=== PATIENT | male | born 1975 | race Asian ===

== ENCOUNTER 2018-07-14 07:21 | Inpatient (IN) | payer OTHER ==
[~2018-07-14] VITALS: Ht 167.6 cm; Wt 95.9 kg
[2018-07-14] VITALS (15 sets, daily range): BP systolic 148–215
--- NOTE | 2018-07-14 07:21 | NUR ---
BROUGHT IN BY [facility], PLACED IN BED #4 AND TRIAGED. REPORT GIVEN TO
--- NOTE | 2018-07-14 07:28 | NUR ---
Patient was discharged from [facility] at 0300 today, went home and called 911 and was BIB ambulance. Patient is awake, alert, and oriented x4. Patient is complaining of sharp abdominal pain 8/10, SOB, dizziness, and weakness for 4 days. Patient reports a history of DM and HTN.
--- NOTE | 2018-07-14 07:30 | NUR ---
ER Dr. Trinidad at bedside examining patient.
[2018-07-14] MEDS ORDERED: DIPHENHYDRAMINE INJ 50 MG/ML VIAL IVP ONE (08:15)
[2018-07-14] MEDS ORDERED: MORPHINE 4 MG/ML INJ. SYRINGE IVP ONE (08:15)
[2018-07-14 08:23] LABS: RED BLOOD CELL COUNT(AUTO) 2.72 MIL/uL (4.2-6.2); WHITE BLOOD COUNT (AUTO) 15.5 K/uL (4.8-10.8)
[2018-07-14 08:24] LABS: HEMOGLOBIN 7.3 g/dL (14.0-18.0); MEAN CORPUSCULAR VOLUME 80 fL (79.0-98.0)
[2018-07-14 08:25] LABS: LYMPHOCYTES % (AUTO) 7.2 % (20.5-51.5); MEAN CORPUSCULAR HEMOGLOBIN 27 pg (27-31); MEAN CORPUSCULAR HGB CONC 34 % (32-36); NEUTROPHILS % (AUTO) 85.7 % (40.0-70.0); PLATELET COUNT (AUTO) 171 K/uL (130-430); RED CELL DISTRIBUTION WIDTH 14.9 % (9.0-15.0)
[2018-07-14 08:26] LABS: BASOPHILS % (AUTO) 0.3 % (0.0-2.0); EOSINOPHILS # (AUTO) 0.1 K/uL (0.0-0.4); EOSINOPHILS % (AUTO) 0.8 % (0.0-4.0); LYMPHOCYTES # (AUTO) 1.1 K/uL (1.0-5.5); MONOCYTES # (AUTO) 0.9 K/uL (0.0-1.0); NEUTROPHILS # (AUTO) 13.3 K/uL (1.8-7.7)
[2018-07-14 08:27] LABS: HEMATOCRIT 21.7 % (36-54)
[2018-07-14 08:47] LABS: POTASSIUM 5.2 mmol/L (3.5-5.1)
[2018-07-14 08:48] LABS: ALBUMIN 2.7 g/dL (3.4-4.8); TOTAL BILIRUBIN 0.5 mg/dL (0.0-1.0)
[2018-07-14 08:51] LABS: CREATININE 29.62 mg/dL (0.55-1.30)
[2018-07-14 08:55] LABS: INR 0.9 (0.80-1.20); PROTHROMBIN TIME 9.2 SECS (9.5-12.5)
[2018-07-14] MEDS ORDERED: DEXTROSE 50% JECT 50 ML DISP.SYRIN IVP ONE (09:15)
[2018-07-14] MEDS ORDERED: SODIUM POLYSTYRENE SULFONATE 15 GM/60 ML UDBTL PO ONE (09:15)
[2018-07-14] MEDS ORDERED: CALCIUM CHLORIDE 1 GM/10ML VIAL (13.6 mEq Ca++/VIAL) IVP ONE (09:15)
[2018-07-14] MEDS ORDERED: INSULIN REGULAR, HUMAN 10 UNITS/0.1 ML INJ IVP ONE (09:15)
[2018-07-14] MEDS ORDERED: SODIUM BICARBONATE 8.4% JECT 50 MEQ/50 ML SYRINGE IVP ONE (09:15)
--- NOTE | 2018-07-14 09:50 | NUR ---
Spoke with Damir regarding Calcium Chloride. States it needs to be entered correctly.
[2018-07-14] MEDS ORDERED: CALCIUM CHLORIDE 1 GM/10 ML DISP.SYRIN (14 mEq Ca++/SYR) ONE (10:33)
[2018-07-14 10:52] LABS: BILIRUBIN,URINE NEGATIVE (NEGATIVE); BLOOD, URINE 1+ (NEGATIVE); CLARITY/URINE CLEAR (CLEAR); COLOR,URINE YELLOW (YELLOW); GLUCOSE,URINE 1+ (NEGATIVE); KETONES,URINE TRACE (NEGATIVE); LEUKOCYTE ESTERASE ,URINE NEGATIVE (NEGATIVE); NITRITE, URINE NEGATIVE (NEGATIVE); PROTEIN URINE 3+ (NEGATIVE); UROBILINOGEN,URINE 0.2 (0.2-1.0)
[2018-07-14 11:06] LABS: BACTERIA,URINE FEW /HPF (None Seen); MUCUS,URINE None Seen /LPF (None Seen); RBC,URINE 0-3 /HPF (0-3); WBC,URINE 0-3 /HPF (0-3)
[2018-07-14] MEDS ORDERED: CARV25TA55 PO (11:09)
[2018-07-14] MEDS ORDERED: FOLI0.8T42 PO (11:09)
[2018-07-14] MEDS ORDERED: NIFE90TA48 PO (11:09)
[2018-07-14] MEDS ORDERED: INSU200I SQ (11:09)
[2018-07-14] MEDS ORDERED: FLUT1BLS3 INH (11:09)
[2018-07-14] MEDS ORDERED: LIP20 PO (11:09)
[2018-07-14] MEDS ORDERED: INSU300I SQ (11:09)
[2018-07-14] MEDS ORDERED: PRO40 PO (11:09)
[2018-07-14] MEDS ORDERED: COLC0.6C3 PO (11:09)
--- NOTE | 2018-07-14 11:13 | NUR ---
Dr. Spicer in to see patient.
--- NOTE | 2018-07-14 11:42 | NUR ---
Patient will be admitted to care of Dr. Spicer. Admitted to ICU unit. Will go to room 5. Belongings list completed. Summary report printed. Report will be given at bedside.
--- NOTE | 2018-07-14 11:43 | NUR ---
Patient transferred to ICU via gurney with mobile monitor, RN and EMT. Report given to DEBRA Pierce at bedside.
--- NOTE | 2018-07-14 11:45 | NUR ---
OPENING NOTE: Patient arrived from ER, bedside SBAR report and plan of care received from RUG CLIPPER.
--- NOTE | 2018-07-14 11:50 | NUR ---
CONSULT: DR. ADRIANA [facility] CALLED FOR CONSULT, SPOKE TO DERICK
--- NOTE | 2018-07-14 12:03 | NUR ---
CALLED PAGED DR TERESA SPOKE WITH ROBERT
--- NOTE | 2018-07-14 12:15 | NUR ---
DR. WRIGHT HERE TO SEE PATIENT, SPOKE TO PATIENT AND FAMILY RE: PLAN OF CARE.
--- NOTE | 2018-07-14 12:25 | NUR ---
CONSULT: DR. MARLENA MENDIOLA CALLED FOR CONSULT, RE: DIALYSIS ACCESS PLACEMENT SPOKE TO ADE
--- NOTE | 2018-07-14 12:25 | NUR ---
CONSULTATIONS CALLED PAGED DR WATSON AND SPOKE WITH LUIS PAGED DR ORDOÑEZ AND SPOKE WITH LUIS REASONS FOR BOTH CONSULTS WERE LIVER MASS REQUESTING DR: DR TERESA
--- NOTE | 2018-07-14 12:30 | NUR ---
DR. MENDIOLA CALLED BACK, MADE AWARE OF CONSULT, WILL COME IN AND SEE PT THIS PM.
--- NOTE | 2018-07-14 12:51 | NUR ---
DR TERESA returned call, notified of elevated blood pressure, lack of DVT prophylaxis, orders received.
[2018-07-14] MEDS ORDERED: hydrALAZINE HCL 20 MG/ML VIAL ONE (13:15)
--- NOTE | 2018-07-14 13:29 | NUR ---
CONSULTATION CALLED FOR DR CHANG SPOKE WITH RIKA
--- NOTE | 2018-07-14 13:34 | NUR ---
MD EDILIA TERESA SPOKE WITH RIKA
--- NOTE | 2018-07-14 13:44 | NUR ---
CALLED PAGED DR WRIGHT SPOKE WITH JUANITO
[2018-07-14] MEDS ORDERED: LABETALOL 100 MG/ 20ML VIAL ONE (13:55)
[2018-07-14] MEDS: hydrALAZINE HCL 20 MG/ML VIAL IVP PRN (13:56)
[2018-07-14] MEDS: LABETALOL 100 MG/ 20ML VIAL IVP PRN (13:57)
--- NOTE | 2018-07-14 15:25 | NUR ---
BT INITIATION: Consent signed per patient, witness and MD agreeing to administration of blood. Blood has been type and crossmatched. Blood sent from blood bank. Information on unit of blood checked against patient wristband at bedside by two nurses. All information matches. Patient or responsible libertarian informed of potential complications associated with blood transfusion. Informed of possible transfusion reaction symptoms. Aware of need to notify nurse at once of itching, shortness of breath, flushing, feeling of impending doom, or other symptoms not previously present. Vital signs taken within 5 minutes prior to initiation of transfusion. RN will remain with patient for first 15 minutes of transfusion at which time vital signs will be re-assessed.
--- NOTE | 2018-07-14 15:45 | NUR ---
External Male Urinary Catheter Applied External Male Urinary Catheter and PT tolerated procedure without complication. Placed urine collection back below bladder. Addendum: 07/14/18 at 1605 by Roel Gabriel RN Previous note entered in wrong file.
--- NOTE | 2018-07-14 15:46 | NUR ---
Disregard note for 1545.
[2018-07-14] MEDS: niCARdipine 25 MG in D5W 240 ML IV PRN ×4 (15:51→22:40)
--- NOTE | 2018-07-14 17:00 | NUR ---
DR TERESA called back, notified him of sepsis risk flag, new orders received
--- NOTE | 2018-07-14 17:20 | NUR ---
SELF KYLE: Patient educated on the importance of turning frequently too off load pressure sensitive areas, I told patient if needed we could help to turn him Q 2 hrs but he refused saying he was capable, will continue to monitor self turning.
[2018-07-14] MEDS ORDERED: PIPERACILLIN/TAZOBACTAM 2.25 GM/ DEX-IS 50 ML PREMIX IV ONE (17:30)
[2018-07-14] MEDS ORDERED: PIPERACILLIN IV PRN (18:00)
[2018-07-14] MEDS ORDERED: D5W IV PRN (18:00)
[2018-07-14] MEDS ORDERED: TAZOBACTAM IV PRN (18:00)
--- NOTE | 2018-07-14 19:10 | NUR ---
PM SHIFT ASSESSMENT Pt is alert and oriented. Pt on RA, RR even and unlabored. ST noted on monitor. IV to RFA and RW, no signs of infiltration noted. Skin warm and intact. Safety precautions in place, call light within reach. Will continue to monitor.
--- NOTE | 2018-07-14 19:32 | NUR ---
ENDORSEMENT: Gave SBAR report and endorsed plan of care to night RN
[2018-07-14] MEDS: PANTOPRAZOLE SODIUM 40 MG/VIAL (PROTONIX) IVP SCH (20:17)
[2018-07-14] MEDS ORDERED: niCARdipine 2.5 MG/ML, 10 ML VIAL (CARDENE) IV ONE ×2 (20:36→22:39)
[2018-07-14 20:49] LABS: TOTAL IRON BIND. CAPACITY 145 ug/dL (250-450)
[2018-07-14 20:54] LABS: INR 0.9 (0.80-1.20); PROTHROMBIN TIME 9.7 SECS (9.5-12.5)
[2018-07-14] MEDS ORDERED: COMMUNICATION ORDER XX ONE (21:00)
--- NOTE | 2018-07-14 21:00 | NUR ---
Dr. Martines here to insert Dialysis Catheter.
[2018-07-14] MEDS ORDERED: HEPARIN SODIUM,PORCINE 5000 UNITS/ML VIAL ONE (21:06)
--- NOTE | 2018-07-14 22:58 | NUR ---
Dialysis nurse here at bedside for first time dialysis.
[2018-07-14] MEDS ORDERED: HEPARIN SODIUM, PORCINE 10,000 UNITS/ 10 ML VIAL MC ONE (23:30)
[2018-07-15] VITALS (24 sets, daily range): BP systolic 113–161
[2018-07-15] MEDS ORDERED: niCARdipine 2.5 MG/ML, 10 ML VIAL (CARDENE) IV ONE ×2 (00:12→04:24)
[2018-07-15] MEDS: niCARdipine 25 MG in D5W 240 ML IV PRN ×9 (01:17→23:31)
[2018-07-15] MEDS: PIPERACILLIN/TAZOBACTAM 2.25 GM/ D5W 50 ML IV SCH ×4 (06:25→17:36)
--- NOTE | 2018-07-15 07:30 | NUR ---
ENDORSEMENT Pt care endorsed to jomar RICHARDSON.
--- NOTE | 2018-07-15 07:35 | NUR ---
Opening Note Patient received awake and alert. Patient on room air at this time with no complaints of any shortness of breath and have no signs of acute distress. Patient has a 20 gauge peripheral IV on the wrist patent, flushing well, and saline locked and a right 20 gauge forearm IV infusing nicardipine @ 8.5 mg/hr. Patient skin is intact. No complaints of pain. Safety precautions in place.
[2018-07-15] MEDS: PANTOPRAZOLE SODIUM 40 MG/VIAL (PROTONIX) IVP SCH ×2 (08:33→21:12)
--- NOTE | 2018-07-15 08:50 | NUR ---
MD Rounds Dr. Spicer @ bedside. New orders received and will implement.
[2018-07-15] MEDS ORDERED: DEXTROSE 50% JECT 50 ML DISP.SYRIN IVP PRN (09:00)
[2018-07-15 09:33] LABS: HEMATOCRIT 24.4 % (36-54); HEMOGLOBIN 8.4 g/dL (14.0-18.0); MEAN CORPUSCULAR HEMOGLOBIN 27 pg (27-31); MEAN CORPUSCULAR HGB CONC 35 % (32-36); MEAN CORPUSCULAR VOLUME 80 fL (79.0-98.0); PLATELET COUNT (AUTO) 154 K/uL (130-430); RED BLOOD CELL COUNT(AUTO) 3.07 MIL/uL (4.2-6.2); WHITE BLOOD COUNT (AUTO) 13.4 K/uL (4.8-10.8)
[2018-07-15 09:34] LABS: BASOPHILS # (AUTO) 0.1 K/uL (0.0-0.2); BASOPHILS % (AUTO) 0.5 % (0.0-2.0); EOSINOPHILS # (AUTO) 0.2 K/uL (0.0-0.4); EOSINOPHILS % (AUTO) 1.1 % (0.0-4.0); LYMPHOCYTES # (AUTO) 1.2 K/uL (1.0-5.5); LYMPHOCYTES % (AUTO) 9.2 % (20.5-51.5); MONOCYTES # (AUTO) 1.4 K/uL (0.0-1.0); MONOCYTES % (AUTO) 10.3 % (1.7-9.3); NEUTROPHILS # (AUTO) 10.6 K/uL (1.8-7.7)
--- NOTE | 2018-07-15 09:41 | NUR ---
Nutrition Update Vadim Scale 17 noted. Pt admitted for renal failure, hyperkalemia. Diet: clear liquid BMI: 32.3 kg/m2 RD to follow per nutrition care standards.
[2018-07-15 09:42] LABS: CALCIUM 7.5 mg/dL (8.4-11.0); POTASSIUM 3.3 mmol/L (3.5-5.1)
[2018-07-15 09:46] LABS: ALBUMIN 2.3 g/dL (3.4-4.8); TOTAL BILIRUBIN 0.8 mg/dL (0.0-1.0)
[2018-07-15 09:57] LABS: CREATININE 22.63 mg/dL (0.55-1.30); NEUTROPHILS % (AUTO) 78.9 % (40.0-70.0)
--- NOTE | 2018-07-15 10:12 | NUR ---
Rounds Dr. Chavis @ bedside.
[2018-07-15] MEDS ORDERED: MIDAZOLAM HCL 5 MG/5 ML VIAL ONE (11:21)
[2018-07-15] MEDS ORDERED: SIMETHICONE 40 MG/0.6 ML ML ONE (11:21)
--- NOTE | 2018-07-15 12:00 | NUR ---
RN Rounds Patient awake and alert. No signs of acute distress noted. Patient has no complaints of pain. Safety precautions in place.
--- NOTE | 2018-07-15 12:00 | NUR ---
Hemodialysis molded goods spot picker @ bedside. Completed procedure @ 1340 with 1L output. Patient received 2 units of PRBCs. Patient tolerated procedure well. No signs of distress noted.
[2018-07-15] MEDS: INSULIN REGULAR, HUMAN 100 UNITS/ML, 10 ML VIAL (novoLIN R) SUBCUT PRN ×3 (12:33→23:36)
--- NOTE | 2018-07-15 14:49 | NUR ---
SS NOTE: CLAY PRESS OPERATOR met with pt and spouse, Candis at bedside for "assessment". Pt is a 42 year old male who came in via ambulance through the emergency room for abdominal pain x4days. Pt states prior to coming to [facility], he was at [facility] ER but was discharged. Three hours after, the patient was still experiencing abdominal pain prompting spouse to call 911. Pt lives in an apartment with spouse and three children (ages 18, 10 and 9). Pt states he used to work for [employer] in [facility] [place] but is on disability since January 2018. Pt states he was admitted at [facility] in January for seizures due to uncontrolled blood sugar. Pt states he is aware he has DM-II but "didn't really take care of myself". Pt states after his January admission, he has been monitoring his blood sugar and tried to lose weight. Pt states he finds support and strength from his family. Pt denies any depression in the past or currently, but states history of anxiety in the past. Pt denies seeing a therapist and denies having history of substance use/abuse. Pt states his children are understanding his condition and aware that he is in the hospital. Pt and states the RN's and MD's are informing them of his prognosis and understands his current condition, although they showed concern if dialysis is going to be permanent. CLAY PRESS OPERATOR informed pt that they need to talk to attending MD regarding that; pt and agreed. Pt denies having an advanced directive/POLST; CLAY PRESS OPERATOR explained process and forms provided. CLAY PRESS OPERATOR provided pt and family with SS phone number and encouraged to call SS if any questions arise. SS will remain available and follow up as needed.
[2018-07-15] MEDS: MIDAZOLAM HCL 5 MG/5 ML VIAL ONE ×3 (15:37→15:42)
[2018-07-15] MEDS: fentaNYL CITRATE/PF 100 MCG/2 ML AMP ONE ×3 (15:37→15:42)
--- NOTE | 2018-07-15 15:40 | NUR ---
EGD Dr. Lopez @ bedside for EGD procedure assisted by GI RNs. Patient tolerated procedure well. No signs of acute distress noted.
--- NOTE | 2018-07-15 15:58 | NUR ---
Wound Evaluation: Wound Consult ordered for Low Vadim Score. Patient evaluated for a low Vadim score of 17. Patient was awake, alert, oriented and received in a Anika Bed with an IsoFlex FERN mattress. Patient is able to turn in bed independently. Skin is intact. Recommend encourage and assist patient as needed with repositioning every 2 hours with pillow support. Elevate, off-load and float bilateral heels with pillows. Offload pressure areas with pillows for pressure re-distribution. Perform skin care and monitor skin integrity Q shift. Skin assessment: 1. Right anterior cardenas: Large area of scaly skin with pink hue and bumpy texture, present on admission. No odor, no drainage. Pruritic. Site measures 25.0 cm x 16.0 cm. Per patient, it is hyper-calcified tissue. Recommend: Cleanse site with mild soap and water. Pat dry. Apply Eucerin cream to involved area. Perform site care twice a day, and as needed for soiling.
--- NOTE | 2018-07-15 16:00 | NUR ---
RN Rounds Patient awake and alert. No signs of acute distress noted. Patient has no complaints of pain. Safety precautions in place. Call light in reach.
--- NOTE | 2018-07-15 16:05 | NUR ---
CHG CHG bath given and linen changed. Patient tolerated procedure well.
[2018-07-15] MEDS ORDERED: MINERAL OIL/PETROLATUM,WHITE 113 GM CREAM.GM. TP ONE (16:30)
--- NOTE | 2018-07-15 17:05 | NUR ---
Closing Note Patient endorsed to shift stacker RN. Patient did not complain of pain @ this time. Patient in no signs of distress. Safety precautions in place.
--- NOTE | 2018-07-15 19:25 | NUR ---
PM SHIFT ASSESSMENT Pt is alert and oriented. Pt on RA, RR even and unlabored. ST noted on monitor. IV to RFA and RW, no signs of infiltration noted. R IJ Dialysis catheter in place, dressing C/D/I. Skin warm and intact. Safety precautions in place, call light within reach. Will continue to monitor.
[2018-07-15] MEDS: MINERAL OIL/PETROLATUM,WHITE 113 GM CREAM.GM. TP SCH (21:13)
[2018-07-15] MEDS: LABETALOL 100 MG/ 20ML VIAL IVP PRN (23:37)
[2018-07-16] VITALS (24 sets, daily range): BP systolic 110–174
[2018-07-16] MEDS: niCARdipine 25 MG in D5W 240 ML IV PRN ×2 (02:09→06:14)
[2018-07-16] MEDS: PIPERACILLIN/TAZOBACTAM 2.25 GM/ D5W 50 ML IV SCH ×4 (06:05→17:29)
[2018-07-16] MEDS: LABETALOL 100 MG/ 20ML VIAL IVP PRN ×2 (06:05→22:16)
[2018-07-16 06:10] LABS: HEPATITIS A AB, IgM Negative (Negative); HEPATITIS B CORE AB, IgM Negative (Negative); HEPATITIS B SURFACE AG Negative (Negative)
--- NOTE | 2018-07-16 07:15 | NUR ---
Opening Note Received bedside report from Jacqui RICHARDSON for continuation of care. Received patient awake in bed. No signs or symptoms of distress noted. Bed locked in lowest position, bed alarm on, and call light within reach.
--- NOTE | 2018-07-16 07:27 | NUR ---
ENDORSEMENT Pt care endorsed to jomar RICHARDSON.
[2018-07-16 08:07] LABS: AFP, TUMOR MARKER 1.5 ng/mL (0.0-8.3)
[2018-07-16] MEDS: PANTOPRAZOLE SODIUM 40 MG/VIAL (PROTONIX) IVP SCH ×2 (08:20→21:13)
[2018-07-16] MEDS: MINERAL OIL/PETROLATUM,WHITE 113 GM CREAM.GM. TP SCH ×2 (08:21→21:12)
[2018-07-16 09:23] LABS: HEMATOCRIT 26.9 % (36-54); HEMOGLOBIN 9.3 g/dL (14.0-18.0); MEAN CORPUSCULAR HEMOGLOBIN 28 pg (27-31); MEAN CORPUSCULAR HGB CONC 34 % (32-36); MEAN CORPUSCULAR VOLUME 81 fL (79.0-98.0); RED BLOOD CELL COUNT(AUTO) 3.35 MIL/uL (4.2-6.2); WHITE BLOOD COUNT (AUTO) 13.5 K/uL (4.8-10.8)
[2018-07-16 09:24] LABS: BASOPHILS # (AUTO) 0.1 K/uL (0.0-0.2); BASOPHILS % (AUTO) 0.5 % (0.0-2.0); EOSINOPHILS # (AUTO) 0.3 K/uL (0.0-0.4); EOSINOPHILS % (AUTO) 2.5 % (0.0-4.0); LYMPHOCYTES # (AUTO) 1.5 K/uL (1.0-5.5); LYMPHOCYTES % (AUTO) 11.4 % (20.5-51.5); MONOCYTES # (AUTO) 1.5 K/uL (0.0-1.0); MONOCYTES % (AUTO) 11.1 % (1.7-9.3); NEUTROPHILS # (AUTO) 10.1 K/uL (1.8-7.7); PLATELET COUNT (AUTO) 144 K/uL (130-430); RED CELL DISTRIBUTION WIDTH 15.3 % (9.0-15.0)
[2018-07-16 09:28] LABS: ALBUMIN 2.3 g/dL (3.4-4.8); CALCIUM 7.1 mg/dL (8.4-11.0); POTASSIUM 3.1 mmol/L (3.5-5.1); TOTAL BILIRUBIN 0.7 mg/dL (0.0-1.0)
[2018-07-16 09:38] LABS: CREATININE 18.79 mg/dL (0.55-1.30)
[2018-07-16 10:11] LABS: NEUTROPHILS % (AUTO) 74.5 % (40.0-70.0)
[2018-07-16] MEDS ORDERED: hydrALAZINE HCL 25 MG TABLET PO ONE (10:30)
[2018-07-16] MEDS ORDERED: CARVEDILOL 6.25 MG TABLET (COREG) PO ONE (10:30)
[2018-07-16] MEDS: INSULIN REGULAR, HUMAN 100 UNITS/ML, 10 ML VIAL (novoLIN R) SUBCUT PRN (11:17)
[2018-07-16 12:06] LABS: FOLATE (FOLIC ACID) >20.0 ng/mL (>3.0)
--- NOTE | 2018-07-16 12:33 | NUR ---
CHG bath performed by patient. Linens changed. Patient tolerated well.
[2018-07-16] MEDS ORDERED: POTASSIUM CHLORIDE 20 MEQ TAB.PRT.SR PO ONE (13:00)
--- NOTE | 2018-07-16 13:00 | NUR ---
Dr. Chavis at bedside examining patient. New orders received.
[2018-07-16 14:27] LABS: FERRITIN 1284 ng/mL (30-400)
[2018-07-16] MEDS: hydrALAZINE HCL 25 MG TABLET PO SCH ×2 (14:34→21:09)
--- NOTE | 2018-07-16 16:01 | NUR ---
Call out to Dr. Giovanny Mercedes regarding blood pressure. 89/38 NS bolus being given. Pt keeps bending her arm and IV site is left AC. Family at bedside. Addendum: 07/16/18 at 1603 by Yoon Mcdermott RN Above entry made on the wrong pt.
--- NOTE | 2018-07-16 17:08 | NUR ---
RN Rounds Patient resting in bed, arousable to voice and touch. Patient denies any pain. No signs or symptoms of distress noted.
[2018-07-16] MEDS: hydrALAZINE HCL 20 MG/ML VIAL IVP PRN ×2 (17:32→22:15)
--- NOTE | 2018-07-16 19:15 | NUR ---
Endorsement Endorsed bedside report to overnight stocker RN using SBAR approach for continuation of care.
--- NOTE | 2018-07-16 20:00 | NUR ---
AAOX4. IN NO APPARENT DISTRESS. VSS. DENIES PAIN. BREATH SOUNDS ESSENTIALLY CLEAR. ON ROOM AIR. POX 95%. BOWEL SOUNDS (+). PULSES PALPABLE. SKIN W/D. COLOR SATISFACTORY. HOB UP TO COMFORT. SIDE RAILS UP. SIDE RAILS PADDED. CALL LIGHTS WITHIN REACH. AMBULATED TO TOILET EARLIER, DEFECATED AND MICTURATED STOOL AND URINE. SELF JANIE-CARE DONE. BACK TO BED WITHOUT INCIDENCE. SINUS TACH. RIGHT IJ DIALYSIS CATH DRSG D/I.
--- NOTE | 2018-07-16 20:40 | NUR ---
DR WATSON HERE, TALKED TO PT. NO NEW ORDERS GIVEN.
[2018-07-16] MEDS ORDERED: CARVEDILOL 6.25 MG TABLET (COREG) PO SCH (21:00)
--- NOTE | 2018-07-16 22:00 | NUR ---
RESTING IN BED, SEMI FOWLERS POSITION. TRANDATE 20 MG AND APRESOLINE 10 MG IVP PRN GIVEN BECAUSE OF BP 174/97.
[2018-07-17] VITALS (20 sets, daily range): BP systolic 146–185
--- NOTE | 2018-07-17 | NUR ---
AWAKE. ACCU-CHEK 112, NO INSULIN DUE PER SLIDING SCALE COV. DENIES NATHANIEL, SOB, DISTRESS. EDUCATED ON DIABETES.
[2018-07-17] MEDS: INSULIN REGULAR, HUMAN 100 UNITS/ML, 10 ML VIAL (novoLIN R) SUBCUT PRN ×2 (01:19→06:25)
--- NOTE | 2018-07-17 02:00 | NUR ---
DOZES ON AND OFF. OOB TO BSC, DEFECATED DARK BROWN WATERY STOOL MIXED WITH URINE. SELF JANIE-CARE. BACK TO BED WITHOUT INCIDENCE. DAISY WELL.
--- NOTE | 2018-07-17 04:00 | NUR ---
SLEPT INTERMITTENTLY. VSS. TURNS SELF WELL.
[2018-07-17 05:22] LABS: HAPTOGLOBIN 141 mg/dL (34-200)
--- NOTE | 2018-07-17 06:00 | NUR ---
SLEPT FOR LONG PERIODS OF TIME. TURNS SELF WELL. 0 DISTRESS. PLEASANT. CONVERSANT. ACCU-CHEK 92, NO INSULIN DUE PER SLIDING SCALE COV. NO COMPLAINTS OFFERED AT THIS TIME. REMAINS IN GUARDED CONDITION.
[2018-07-17] MEDS: PIPERACILLIN/TAZOBACTAM 2.25 GM/ D5W 50 ML IV SCH ×4 (06:25→17:10)
[2018-07-17 07:09] LABS: ALBUMIN 1.9 g/dL (3.4-4.8); POTASSIUM 3.4 mmol/L (3.5-5.1); TOTAL BILIRUBIN 0.5 mg/dL (0.0-1.0)
--- NOTE | 2018-07-17 07:10 | NUR ---
A/OX4, AMBULATORY. SR-ST ON MONITOR. IV SITES ON RIGHT HAND, ARM, #20, SL. LANEY CATH ON UPPER RIGHT CHEST, DRESSING CDI. CALL LIGHT IN PLACE, BED LOCKED AT THE LOWEST POSITION, WILL CONTINUE TO MONITOR.
[2018-07-17 07:16] LABS: CALCIUM 6.5 mg/dL (8.4-11.0); CREATININE 19.14 mg/dL (0.55-1.30)
[2018-07-17 07:25] LABS: BASOPHILS % (AUTO) 0.7 % (0.0-2.0); EOSINOPHILS % (AUTO) 2.9 % (0.0-4.0); HEMATOCRIT 26.8 % (36-54); HEMOGLOBIN 9.2 g/dL (14.0-18.0); LYMPHOCYTES % (AUTO) 8.9 % (20.5-51.5); MEAN CORPUSCULAR HEMOGLOBIN 28 pg (27-31); MEAN CORPUSCULAR HGB CONC 34 % (32-36); MEAN CORPUSCULAR VOLUME 81 fL (79.0-98.0); MONOCYTES % (AUTO) 10.8 % (1.7-9.3); NEUTROPHILS # (AUTO) 11.7 K/uL (1.8-7.7); NEUTROPHILS % (AUTO) 76.7 % (40.0-70.0); PLATELET COUNT (AUTO) 141 K/uL (130-430); RED BLOOD CELL COUNT(AUTO) 3.32 MIL/uL (4.2-6.2); RED CELL DISTRIBUTION WIDTH 15.7 % (9.0-15.0); WHITE BLOOD COUNT (AUTO) 14.9 K/uL (4.8-10.8)
[2018-07-17 07:26] LABS: BASOPHILS # (AUTO) 0.1 K/uL (0.0-0.2); EOSINOPHILS # (AUTO) 0.4 K/uL (0.0-0.4); LYMPHOCYTES # (AUTO) 1.3 K/uL (1.0-5.5); MONOCYTES # (AUTO) 1.6 K/uL (0.0-1.0)
[2018-07-17] MEDS ORDERED: CARVEDILOL 6.25 MG TABLET (COREG) PO SCH (09:00)
--- NOTE | 2018-07-17 09:00 | NUR ---
HD BEGINS. WILL CONTINUE TO MONITOR.
[2018-07-17] MEDS: CARVEDILOL 25 MG TABLET (COREG) PO SCH ×2 (09:09→21:15)
[2018-07-17] MEDS: PANTOPRAZOLE SODIUM 40 MG/VIAL (PROTONIX) IVP SCH ×2 (09:09→21:16)
[2018-07-17] MEDS: MINERAL OIL/PETROLATUM,WHITE 113 GM CREAM.GM. TP SCH ×2 (09:10→21:00)
--- NOTE | 2018-07-17 10:00 | NUR ---
patient has a dark brown loose bm.
[2018-07-17] MEDS ORDERED: HEPARIN SODIUM,PORCINE 5000 UNITS/ML VIAL SUBCUT ONE ×2 (10:30)
[2018-07-17] MEDS ORDERED: COMMUNICATION ORDER XX ONE (10:30)
[2018-07-17] MEDS: hydrALAZINE HCL 25 MG TABLET PO SCH ×3 (11:58→21:14)
--- NOTE | 2018-07-17 12:00 | NUR ---
HD IS COMPLETED. 500ML IS REMOVED.
[2018-07-17] MEDS: LABETALOL 100 MG/ 20ML VIAL IVP PRN ×2 (13:31→18:02)
[2018-07-17] MEDS: hydrALAZINE HCL 20 MG/ML VIAL IVP PRN (14:07)
[2018-07-17] MEDS ORDERED: amLODIPine BESYLATE 10 MG TABLET PO ONE (14:15)
--- NOTE | 2018-07-17 14:42 | NUR ---
DR. KYLE IS CALLED ABOUT THE ELEVATED BP AT 160S-170S SBP. DR. KYLE IS CALLED, AND ORDER IS GIVEN.
--- NOTE | 2018-07-17 15:53 | NUR ---
Page out to Dr. Singh for orders. Spoke with kitty. Addendum: 07/17/18 at 1607 by Jane Ford RN Dr. Singh return call, no orders made.
--- NOTE | 2018-07-17 16:07 | NUR ---
Page out to Dr. Quijano for orders for pt's BP, currently 182/104.
--- NOTE | 2018-07-17 18:00 | NUR ---
Dr. Quijano calls back, and informs him that patient's BP remains elevated. New order is given. Will be carried out.
--- NOTE | 2018-07-17 18:39 | NUR ---
Patient is transferred to Tele. Care is delegated to DEBRA Coy.
--- NOTE | 2018-07-17 18:45 | NUR ---
RECEIVED PATIENT FROM ICU Patient received from ICU. Patient is awake, alert, and oriented x4. Denies any pain/discomfort. Breathing even and unlabored. IV sites remains patent and intact, saline locked. Sukhdev cath in place on right intrajugular, covered with transparent dressing, dressing dry, clean and intact. Oriented patient on room, call light use, and routine. Safety, seizure, and fall precautions observed, bed low and locked, side rails up x2, seizure pads present, call light within reach. Will endorse plan of care. Family at the bedside.
--- NOTE | 2018-07-17 20:00 | NUR ---
INITIAL NOTES: BEDSIDE REPORT WAS DONE. PATIENT IN BED AWAKE ,ALERT ,ORIENTED X3, WATCHING TV SHOWS, DENIES PAIN NOR SOB. BOTH SALINE LOCKS TO RFA SITES CLEAR.BIOPACTH DRESSING TO RT. EXTERNAL JUGULAR WITH OLD BLOOD.CALL LIGHT WITHIN REACH. BED IN LOW POSITION..SINUS TACHYCARDEIC. SEE ASSESSMENT FOR MORE DETAILS. Addendum: 07/19/18 at 0308 by Suzanne Roberts RN DATE OF THIS NOTES IS 07/18/18 AT 2000 HR.
--- NOTE | 2018-07-17 20:05 | NUR ---
INITIAL NOTES: BEDSIDE REPORT DONE FROM AM RN. PATIENT IN BED AWAKE ,ALERT ,ORIENTED X3/ MAURICIO FAMILIES AT BEDSIDE. DENIES PAIN NOR SOB.SALINE LOCK X2 NO REDNESS NOR SWOLLEN. RT. EXTERNAL JUGULAR DRESSING DRY AND INTACT. TRACE EDEMA TO LEGS ,1+SACRAL EDEMA. RT. LEG HOWARD WITH ECZEMA,DENIES ITCHING. CALL LIGHT WITHIN REACH.BED IN LOW POSITION. SINUS TACHYCARDIA. ELEVATED BLOOD PRESSURE ON MEDS.PLAN OF CARE DISCUSSED.WILL MONITOR CLOSELY.
--- NOTE | 2018-07-17 21:10 | NUR ---
MEDS ADMIN: ALL DUE PO/IV MEDS GIVEN WITHOUT DIFFICULTY.
[2018-07-17] MEDS: LOSARTAN POTASSIUM 50 MG TABLET (COZAAR) PO SCH (21:15)
--- NOTE | 2018-07-17 23:05 | NUR ---
ROUNDS: RESTING QUITELY WITH EYES CLOSE. NO DISTRESS.
[2018-07-18] MEDS: INSULIN REGULAR, HUMAN 100 UNITS/ML, 10 ML VIAL (novoLIN R) SUBCUT PRN (00:35)
--- NOTE | 2018-07-18 01:05 | NUR ---
ROUNDS: SELF TURN. RESTING QUITELY. AROUSABLE,DENIES ANY PAIN.
[2018-07-18 02:37] VITALS: BP_SYST 152
--- NOTE | 2018-07-18 04:30 | NUR ---
ROUNDS: PATIENT SLEEPING. NSR ON MONITOR.
[2018-07-18] MEDS: PIPERACILLIN/TAZOBACTAM 2.25 GM/ D5W 50 ML IV SCH ×4 (06:36→17:37)
--- NOTE | 2018-07-18 06:56 | NUR ---
CLOSING: ALL NEEDS WERE ATTENDED. SLEPT AT SHORT INTERVALS. VOIDED ONCE THIS AM WITH MODERATE AMOUNT. INSTRUCTED TO USE URINAL FOR ACCURATE INTAKE AND OUTPUT. RECEPTIVE.NO ACUTE CARDIOPULMONARY DISTRESS . ALL IV LINES INTACT. SINUS RHYTHM. WILL ENDORSE CARE TO AM RN.
[2018-07-18 07:15] LABS: ALBUMIN 1.6 g/dL (3.4-4.8); POTASSIUM 3.2 mmol/L (3.5-5.1); TOTAL BILIRUBIN 0.5 mg/dL (0.0-1.0)
[2018-07-18 07:34] LABS: HEMOGLOBIN 8.6 g/dL (14.0-18.0); RED BLOOD CELL COUNT(AUTO) 3.12 MIL/uL (4.2-6.2); WHITE BLOOD COUNT (AUTO) 12.9 K/uL (4.8-10.8)
[2018-07-18 07:35] LABS: HEMATOCRIT 25.7 % (36-54); MEAN CORPUSCULAR HEMOGLOBIN 28 pg (27-31); MEAN CORPUSCULAR HGB CONC 34 % (32-36); MEAN CORPUSCULAR VOLUME 82 fL (79.0-98.0); PLATELET COUNT (AUTO) 138 K/uL (130-430); RED CELL DISTRIBUTION WIDTH 15.6 % (9.0-15.0)
--- NOTE | 2018-07-18 07:45 | NUR ---
AM ASSESSMENT Pt received from night RN using SBAR. Vital signs stable, no signs of injury or complaints of distress.
[2018-07-18 07:47] LABS: CALCIUM 6.6 mg/dL (8.4-11.0); CREATININE 13.55 mg/dL (0.55-1.30)
[2018-07-18 08:00] VITALS: BP_SYST 164
[2018-07-18] MEDS: PANTOPRAZOLE SODIUM 40 MG/VIAL (PROTONIX) IVP SCH ×2 (08:44→21:05)
[2018-07-18] MEDS: amLODIPine BESYLATE 10 MG TABLET PO SCH (08:45)
[2018-07-18] MEDS: CARVEDILOL 25 MG TABLET (COREG) PO SCH ×2 (08:45→21:04)
[2018-07-18] MEDS: hydrALAZINE HCL 25 MG TABLET PO SCH ×2 (08:45→21:03)
[2018-07-18] MEDS: LOSARTAN POTASSIUM 50 MG TABLET (COZAAR) PO SCH (08:46)
[2018-07-18] MEDS: MINERAL OIL/PETROLATUM,WHITE 113 GM CREAM.GM. TP SCH ×2 (08:56→21:06)
--- NOTE | 2018-07-18 09:43 | NUR ---
Paged Dr. Quijano waiting on pending labs, paged regarding critical labs.
[2018-07-18 09:47] LABS: BASOPHILS % (AUTO) 0.4 % (0.0-2.0); EOSINOPHILS # (AUTO) 0.3 K/uL (0.0-0.4); EOSINOPHILS % (AUTO) 2.2 % (0.0-4.0); LYMPHOCYTES % (AUTO) 7.5 % (20.5-51.5); MONOCYTES # (AUTO) 1.7 K/uL (0.0-1.0); NEUTROPHILS # (AUTO) 9.9 K/uL (1.8-7.7)
[2018-07-18 09:48] LABS: NEUTROPHILS % (AUTO) 76.9 % (40.0-70.0)
--- NOTE | 2018-07-18 10:35 | NUR ---
MD Dr. Quijano called back, informed of critical lab values Ca+ 6.6 and Crea 13.55, new orders received.
[2018-07-18] MEDS ORDERED: POTASSIUM CHLORIDE 20 MEQ TAB.PRT.SR PO ONE (11:30)
[2018-07-18 11:45] VITALS: BP_SYST 163
[2018-07-18 16:23] VITALS: BP_SYST 146
--- NOTE | 2018-07-18 16:31 | NUR ---
PATIENT RESTING: Patient resting quietly. No acute distress noted. Vital signs within normal range.
--- NOTE | 2018-07-18 17:46 | NUR ---
RN rounds/Medication patient resting in bed, blood glucose checked, no insulin coverage per MD orders, IV antibiotic hung and infusing well, family at bedside, continuing to monitor, bed in lowest position, two side rails up, call light within reach, fall and aspiration precautions.
--- NOTE | 2018-07-18 18:35 | NUR ---
Closing note patient resting in bed, family at bedside, all needs met, will endorse report to NOC shift nurse, patient in stable condition, bed in lowest position, two side rails up, call light within reach, fall and aspiration precautions in place.
[2018-07-18] MEDS ORDERED: LOSARTAN POTASSIUM 50 MG TABLET (COZAAR) PO SCH ×3 (19:30→21:30)
[2018-07-18 19:55] VITALS: BP_SYST 159
--- NOTE | 2018-07-18 20:15 | NUR ---
MEDS ADMIN: ALL DUE PO AND IV MEDS WERE GIVEN WITHOUT DIFFICULTY. DENIES PAIN.
--- NOTE | 2018-07-18 22:12 | NUR ---
ROUNDS: IN BED AWAKE,WATCHING TV SHOWS.CALL LIGHT NEAR BY. DENIES PAIN.
--- NOTE | 2018-07-18 23:35 | NUR ---
NUTRITION; PATIENT CALLED, FEELS HUNGRY. BLOOD SUGAR RESULTS 105. SANDWICH .MILK, CRACKERS GIVEN FOR SANCKS.
[2018-07-19 00:15] VITALS: BP_SYST 150
--- NOTE | 2018-07-19 02:15 | NUR ---
ROUNDS: RESTING QUITELY. BREATHING PATTER REGULAR.
--- NOTE | 2018-07-19 04:00 | NUR ---
ROUNDS: PATIENT CONTINUE SLEEPING. BREATHING SYMETRICAL.
[2018-07-19] MEDS: PIPERACILLIN/TAZOBACTAM 2.25 GM/ D5W 50 ML IV SCH ×4 (05:37→17:27)
--- NOTE | 2018-07-19 05:40 | NUR ---
CLOSING: BLOOD SUGAR 125. NO COVERAGE. ALL NEEDS WERE ATTENDED. NO SEIZURE DURING THE SHIFT. NO ACUTE CARDIOPULMONARY DISTRESS . WILL ENDORSE CARE TO AM RN.
--- NOTE | 2018-07-19 07:11 | NUR ---
Opening Note: Patient in bed resting. Patient denies pain and discomfort. Breathing is even and unlabored with no distress noted. IV patent and intact and saline locked, no signs of infiltration noted. Urinal at bedside. Seizure precautions in place. Safety precautions in place; bed in lowest position, wheels locked, side rails x2 and call light within reach. No needs at this time. Will continue to monitor.
[2018-07-19 08:25] VITALS: BP_SYST 186
[2018-07-19] MEDS: PANTOPRAZOLE SODIUM 40 MG/VIAL (PROTONIX) IVP SCH ×2 (08:29→20:14)
[2018-07-19] MEDS: MINERAL OIL/PETROLATUM,WHITE 113 GM CREAM.GM. TP SCH ×2 (08:30→20:15)
[2018-07-19] MEDS: amLODIPine BESYLATE 10 MG TABLET PO SCH (08:31)
[2018-07-19] MEDS: CARVEDILOL 25 MG TABLET (COREG) PO SCH ×2 (08:31→20:14)
[2018-07-19] MEDS: hydrALAZINE HCL 25 MG TABLET PO SCH ×2 (08:32→20:15)
[2018-07-19 09:14] LABS: HEMATOCRIT 26.8 % (36-54); HEMOGLOBIN 8.8 g/dL (14.0-18.0); MEAN CORPUSCULAR VOLUME 84 fL (79.0-98.0); RED BLOOD CELL COUNT(AUTO) 3.19 MIL/uL (4.2-6.2); WHITE BLOOD COUNT (AUTO) 16.5 K/uL (4.8-10.8)
[2018-07-19 09:15] LABS: BASOPHILS # (AUTO) 0.1 K/uL (0.0-0.2); BASOPHILS % (AUTO) 0.4 % (0.0-2.0); EOSINOPHILS # (AUTO) 0.5 K/uL (0.0-0.4); EOSINOPHILS % (AUTO) 3.1 % (0.0-4.0); LYMPHOCYTES # (AUTO) 1.2 K/uL (1.0-5.5); LYMPHOCYTES % (AUTO) 7.5 % (20.5-51.5); MEAN CORPUSCULAR HEMOGLOBIN 28 pg (27-31); MEAN CORPUSCULAR HGB CONC 33 % (32-36); MONOCYTES # (AUTO) 1.6 K/uL (0.0-1.0); MONOCYTES % (AUTO) 9.6 % (1.7-9.3); NEUTROPHILS # (AUTO) 13.1 K/uL (1.8-7.7); PLATELET COUNT (AUTO) 162 K/uL (130-430); RED CELL DISTRIBUTION WIDTH 15.8 % (9.0-15.0)
[2018-07-19 09:27] LABS: ALBUMIN 1.8 g/dL (3.4-4.8); POTASSIUM 3.4 mmol/L (3.5-5.1); TOTAL BILIRUBIN 0.5 mg/dL (0.0-1.0)
--- NOTE | 2018-07-19 10:02 | NUR ---
Rounds: Patient in bed resting. No distress noted. Will continue to monitor.
[2018-07-19 11:01] LABS: CALCIUM 6.6 mg/dL (8.4-11.0)
[2018-07-19 11:03] LABS: CREATININE 15.17 mg/dL (0.55-1.30)
--- NOTE | 2018-07-19 11:10 | NUR ---
Paging Dr. Ryan: Paging Dr. Ryan regarding Liver biopsy, per Titi from radiology the radiologist is requesting a liver US to see liver vascularity before biopsy is performed. Awaiting callback and orders. Spoke to Dagmar.
--- NOTE | 2018-07-19 11:13 | NUR ---
Paging Dr. Chavis: Paging Dr. Chavis regarding critical lab. Awaiting callback.
[2018-07-19] MEDS: LABETALOL 100 MG/ 20ML VIAL IVP PRN (11:54)
[2018-07-19 12:00] VITALS: BP_SYST 179
--- NOTE | 2018-07-19 12:00 | NUR ---
Rounds: Patient in bed resting. Patient denies pain and discomfort. Breathing is even and unlabored with no distress noted. Seizure precautions in place. Morning medications tolerated well. Patient given PRN Bp meds, will reassess, see eMAR. Safety precautions in place; bed in lowest position, wheels locked, side rails x2 and call light within reach. Will continue to monitor.
--- NOTE | 2018-07-19 12:07 | NUR ---
Dietitian Recommendations *Recommend adding CCHO to Soft Renal Standard diet. Please see Nutritional Assessment for details. ETHEL, FREDDIE
[2018-07-19 12:22] LABS: NEUTROPHILS % (AUTO) 79.4 % (40.0-70.0)
--- NOTE | 2018-07-19 12:25 | NUR ---
Paging Dr. Ryan x2: Awaiting callback.
--- NOTE | 2018-07-19 12:30 | NUR ---
Spoke to Dr. Ryan: Spoke to Dr. Ryan, orders received regarding Liver US. Orders to be entered by RN.
--- NOTE | 2018-07-19 12:58 | NUR ---
Wound Re-Evaluation: Late note for 1258 secondary to patient care. Wound Consult ordered for Low Vadim Score. Patient re-evaluated for a low Vadim score of 18. Patient was awake, alert, oriented and received in a [place] Bed with an IsoFlex FERN mattress. Patient is able to turn in bed independently. Skin is intact. Recommend encourage and assist patient as needed with repositioning every 2 hours with pillow support. Elevate, off-load and float bilateral heels with pillows. Offload pressure areas with pillows for pressure re-distribution. Perform skin care and monitor skin integrity Q shift. Skin assessment: 1. Right anterior cardenas: Large area of scaly skin with pink hue and bumpy texture, present on admission. No odor, no drainage. No pruritus reported. Per patient, it is eczema. Improved, no dry, flaky skin on surrounding tissue. Recommend continue: Cleanse site with mild soap and water. Pat dry. Apply Eucerin cream to involved area. Perform site care twice a day, and as needed for soiling.
[2018-07-19 13:19] VITALS: BP_SYST 157
--- NOTE | 2018-07-19 13:59 | NUR ---
Rounds: Patient in bed resting, watching TV. No distress noted. Will continue to monitor.
[2018-07-19 16:05] VITALS: BP_SYST 151
[2018-07-19] MEDS: LOSARTAN POTASSIUM 50 MG TABLET (COZAAR) PO SCH (17:24)
--- NOTE | 2018-07-19 19:00 | NUR ---
Closing Note: Patient in bed resting, US waste handling technician at bedside. Patient denies pain and discomfort. Breathing is even and unlabored with no distress noted. IV patent and intact and saline locked, no signs of infiltration noted. Urinal at bedside. Seizure precautions in place. Safety precautions in place; bed in lowest position, wheels locked, side rails x2 and call light within reach. All needs met. Will endorse plan of care to NOC, nurse.
--- NOTE | 2018-07-19 19:10 | NUR ---
OPENING NOTE Received report from Steff. Patient resting in bed awake, alert, oriented x4. Breathing unlabored and even on room air. No signs of distress, no needs at this time. Fall, safety, seizure, aspiration precautions in place. Bed in lowest position, brake on, call light within reach. Will continue to monitor.
--- NOTE | 2018-07-19 19:20 | NUR ---
Dr. Chavis at the bedside.
[2018-07-19 20:10] VITALS: BP_SYST 159
--- NOTE | 2018-07-19 20:10 | NUR ---
HD order given to [facility] for tomorrow. Ember, dialysis nurse called asking if patient has new HD access. Informed her that he still has the external jugular access.
--- NOTE | 2018-07-19 22:48 | NUR ---
Paging Dr. Ryan to inform him of abd US results.
--- NOTE | 2018-07-19 22:50 | NUR ---
Paged Dr. Ryan s/w Adelaida.
--- NOTE | 2018-07-19 22:52 | NUR ---
Informed Dr. Ryan of abd US results. Per Dr. Ryan, no change. No new orders received.
--- NOTE | 2018-07-19 22:59 | NUR ---
Gave patient a sandwich and ice chips
--- NOTE | 2018-07-19 23:35 | NUR ---
Called and spoke to Dr. Martines. Informed him that Dr. Chavis ordered HD AFTER new HD access has been established. Dr. Martines said he would place new HD access tomorrow night in the OR as an add on. Dr. Martines spoke to Pedro mishra. Pedro will call Ember, dialysis nurse, in the AM to let her know of plan.
[2018-07-20] VITALS (9 sets, daily range): BP systolic 133–180
--- NOTE | 2018-07-20 | NUR ---
PT NOW NPO
[2018-07-20] MEDS: INSULIN REGULAR, HUMAN 100 UNITS/ML, 10 ML VIAL (novoLIN R) SUBCUT PRN ×2 (00:09→05:33)
--- NOTE | 2018-07-20 00:10 | NUR ---
Blood sugar 131. No insulin coverage needed at this time.
--- NOTE | 2018-07-20 00:11 | NUR ---
BP check: 143/86, HR 86.
--- NOTE | 2018-07-20 00:17 | NUR ---
Permacath placement consent signed and placed in chart
--- NOTE | 2018-07-20 02:19 | NUR ---
Patient resting in bed with eyes closed. Breathing unlabored and even on room air. No signs of distress, no needs at this time. Fall, safety, seizure, aspiration precautions in place. Bed in lowest position, brake on, call light within reach. Will continue to monitor.
[2018-07-20] MEDS: PIPERACILLIN/TAZOBACTAM 2.25 GM/ D5W 50 ML IV SCH ×4 (05:34→17:06)
--- NOTE | 2018-07-20 05:36 | NUR ---
Blood sugar: 116. No insulin coverage needed. IV abx hung
--- NOTE | 2018-07-20 06:54 | NUR ---
CLOSING NOTE Patient resting in bed awake, alert, oriented x4. Breathing unlabored and even on room air. No signs of distress, no needs at this time. Fall, safety, seizure, aspiration precautions in place. Bed in lowest position, brake on, call light within reach. Will have RN f/u with 0900 AM labs to monitor kidney function. Depending on labs, patient may need HD before new access is placed. Will endorse cares to day shift nurse.
[2018-07-20 07:53] LABS: HEMATOCRIT 22.6 % (36-54); HEMOGLOBIN 7.5 g/dL (14.0-18.0); MEAN CORPUSCULAR HEMOGLOBIN 28 pg (27-31); MEAN CORPUSCULAR HGB CONC 33 % (32-36); MEAN CORPUSCULAR VOLUME 84 fL (79.0-98.0); RED CELL DISTRIBUTION WIDTH 15.4 % (9.0-15.0); WHITE BLOOD COUNT (AUTO) 16.1 K/uL (4.8-10.8)
[2018-07-20 07:54] LABS: BASOPHILS # (AUTO) 0.1 K/uL (0.0-0.2); BASOPHILS % (AUTO) 0.4 % (0.0-2.0); EOSINOPHILS # (AUTO) 0.5 K/uL (0.0-0.4); EOSINOPHILS % (AUTO) 2.9 % (0.0-4.0); LYMPHOCYTES # (AUTO) 1.3 K/uL (1.0-5.5); LYMPHOCYTES % (AUTO) 8.2 % (20.5-51.5); MONOCYTES # (AUTO) 1.2 K/uL (0.0-1.0); MONOCYTES % (AUTO) 7.2 % (1.7-9.3); NEUTROPHILS # (AUTO) 13.1 K/uL (1.8-7.7); NEUTROPHILS % (AUTO) 81.3 % (40.0-70.0); PLATELET COUNT (AUTO) 144 K/uL (130-430)
--- NOTE | 2018-07-20 08:00 | NUR ---
Note Pt sitting on BS chair near the window. Pt stable in gait when ambulating in room. No SOB/resp distress or pain/discomfort noted at this time. IV in right wrist intact and patent at this time. Pt has been NPO since midnight for Liver biopsy test and perma cath placement this evening. No needs noted. Call light within reach.
[2018-07-20] MEDS: PANTOPRAZOLE SODIUM 40 MG/VIAL (PROTONIX) IVP SCH ×2 (08:01→20:49)
[2018-07-20] MEDS: CARVEDILOL 25 MG TABLET (COREG) PO SCH ×2 (08:02→20:51)
[2018-07-20] MEDS: hydrALAZINE HCL 25 MG TABLET PO SCH ×3 (08:03→20:50)
[2018-07-20] MEDS: amLODIPine BESYLATE 10 MG TABLET PO SCH (08:03)
[2018-07-20 08:06] LABS: POTASSIUM 3.4 mmol/L (3.5-5.1)
[2018-07-20] MEDS: MINERAL OIL/PETROLATUM,WHITE 113 GM CREAM.GM. TP SCH ×2 (08:09→20:53)
[2018-07-20 08:24] LABS: CALCIUM 6.2 mg/dL (8.4-11.0)
[2018-07-20 08:28] LABS: CREATININE 15.89 mg/dL (0.55-1.30)
[2018-07-20 08:54] LABS: ALBUMIN 1.6 g/dL (3.4-4.8); TOTAL BILIRUBIN 0.4 mg/dL (0.0-1.0)
[2018-07-20] MEDS ORDERED: MINOXIDIL 10 MG TABLET (LONITEN) PO ONE (09:45)
--- NOTE | 2018-07-20 11:00 | NUR ---
Note Pt was seen by Dr Spicer, Dr Wilson at 0830am and orders were written and carried out at this time. Dr Ryan was on the floor at 09am and spoke to Dr Renteria (radiology) about possible liver biopsy or test. Order for CT of abdomen with contrast given and will be carried out. Call light within reach. Pt has 2 family members at bedside at this time.
--- NOTE | 2018-07-20 14:00 | NUR ---
Note Pt was seen by Dr Chavis and order for Renal lunch given and carried out. Dr Chavis, Dr Spicer and Dr Wilson were all made aware that Dr Martines will not be here till 10pm to place perma cath. Right IJ is sluggish and needs to be replaced. Pa - perianesthesia rn also aware when she called at 11am. Pt off the floor via wheelchair to radiology dept for CT of abdomen with contrast. No needs noted. Call light within reach. Addendum: 07/20/18 at 1407 by Corinne Figueroa RN Note [employer] called at 1240pm to get update on pt's status.
[2018-07-20] MEDS ORDERED: IOHEXOL 100 ML IV ONE (14:18)
--- NOTE | 2018-07-20 15:00 | NUR ---
Note Pt returned to floor from CT dept. Pt was given his Apresoline PO med at this time. 1430 - Dr Martines called the floor and update on pt's labs and antibiotic IVPB was given at this time, stated he was going to call Dr Chavis about perma cath placement. No new orders given at this time Pt resting in bed at this time. No needs noted at this time. Call light within reach.
[2018-07-20] MEDS: LOSARTAN POTASSIUM 50 MG TABLET (COZAAR) PO SCH (17:05)
--- NOTE | 2018-07-20 18:10 | NUR ---
Note Pt resting in bed watching television. Tele unit attached and intact all shift. No SOB/resp distress or severe pain/discomfort noted at this time. Pt was checked on q1' and PRN all shift for needs and care. Pt ambulatory in room with steady gait. Pt is c/o of gout in lower extremities, states he will talk to MD. Pt states he has history of gout in the past. No needs noted at this time. Pt's right forearm IV intact and patent at this time. Call light within reach.
[2018-07-20] MEDS ORDERED: HEPARIN SODIUM,PORCINE 5000 UNITS/ML VIAL MC ONE (19:00)
--- NOTE | 2018-07-20 21:14 | NUR ---
PAGED I PAGED DR[address] [phone] VALLADARES [employer]QUIPMENT SERVICE ENGINEER @ THIS MOMENT I SPOKE WITH CALEB
[2018-07-20] MEDS ORDERED: COLCHICINE 0.6 MG TABLET PO SCH (23:00)
[2018-07-21] MEDS: MINOXIDIL 10 MG TABLET (LONITEN) PO SCH ×3 (00:27→21:00)
[2018-07-21] MEDS: INSULIN REGULAR, HUMAN 100 UNITS/ML, 10 ML VIAL (novoLIN R) SUBCUT PRN (00:41)
[2018-07-21] MEDS ORDERED: MORPHINE 4 MG/ML INJ. SYRINGE IVP SCH ×2 (01:00→03:00)
--- NOTE | 2018-07-21 02:17 | NUR ---
PAGED I PAGED [phone] DR. VALLADARES PUTTY MAKER I SPOKE WITH ERROL GRANT
--- NOTE | 2018-07-21 02:22 | NUR ---
DR. VALLADARES CALLED BACK @ [phone]
--- NOTE | 2018-07-21 04:43 | NUR ---
PAGED I PAGED DR VALLADARES @ [phone] I SPOKE WITH DENY GRANT
--- NOTE | 2018-07-21 04:45 | NUR ---
DR. VALLADARES CALLED BACK @ [phone]
[2018-07-21] MEDS ORDERED: MORPHINE 4 MG/ML INJ. SYRINGE ONE ×3 (05:36→09:20)
[2018-07-21] MEDS: PIPERACILLIN/TAZOBACTAM 2.25 GM/ D5W 50 ML IV SCH ×4 (06:00→18:35)
[2018-07-21 07:50] LABS: ALBUMIN 1.7 g/dL (3.4-4.8); POTASSIUM 3.2 mmol/L (3.5-5.1); TOTAL BILIRUBIN 0.4 mg/dL (0.0-1.0)
[2018-07-21 07:53] LABS: CALCIUM 6.9 mg/dL (8.4-11.0)
[2018-07-21 07:54] LABS: CREATININE 10.56 mg/dL (0.55-1.30)
[2018-07-21 08:40] LABS: MEAN CORPUSCULAR VOLUME 84 fL (79.0-98.0); RED BLOOD CELL COUNT(AUTO) 2.56 MIL/uL (4.2-6.2); WHITE BLOOD COUNT (AUTO) 15.8 K/uL (4.8-10.8)
[2018-07-21 08:41] LABS: MEAN CORPUSCULAR HEMOGLOBIN 28 pg (27-31); MEAN CORPUSCULAR HGB CONC 33 % (32-36); PLATELET COUNT (AUTO) 177 K/uL (130-430); RED CELL DISTRIBUTION WIDTH 15.3 % (9.0-15.0)
[2018-07-21 08:42] LABS: BASOPHILS # (AUTO) 0.1 K/uL (0.0-0.2); BASOPHILS % (AUTO) 0.4 % (0.0-2.0); EOSINOPHILS # (AUTO) 0.3 K/uL (0.0-0.4); EOSINOPHILS % (AUTO) 1.7 % (0.0-4.0); LYMPHOCYTES # (AUTO) 0.9 K/uL (1.0-5.5); LYMPHOCYTES % (AUTO) 5.5 % (20.5-51.5); MONOCYTES # (AUTO) 1.3 K/uL (0.0-1.0); MONOCYTES % (AUTO) 7.9 % (1.7-9.3); NEUTROPHILS # (AUTO) 13.4 K/uL (1.8-7.7); NEUTROPHILS % (AUTO) 84.5 % (40.0-70.0)
[2018-07-21 08:43] LABS: HEMATOCRIT 21.5 % (36-54); HEMOGLOBIN 7.1 g/dL (14.0-18.0)
[2018-07-21] MEDS: CARVEDILOL 25 MG TABLET (COREG) PO SCH ×2 (09:00→21:00)
[2018-07-21] MEDS: MINERAL OIL/PETROLATUM,WHITE 113 GM CREAM.GM. TP SCH ×2 (09:00→21:57)
[2018-07-21] MEDS: amLODIPine BESYLATE 10 MG TABLET PO SCH (09:00)
[2018-07-21] MEDS: COLCHICINE 0.6 MG TABLET PO SCH (09:00)
[2018-07-21] MEDS: hydrALAZINE HCL 25 MG TABLET PO SCH ×3 (09:00→21:00)
[2018-07-21] MEDS: PANTOPRAZOLE SODIUM 40 MG/VIAL (PROTONIX) IVP SCH ×2 (09:00→21:55)
[2018-07-21] MEDS ORDERED: MORPHINE 4 MG/ML INJ. SYRINGE IVP PRN (09:15)
--- NOTE | 2018-07-21 10:00 | NUR ---
Note [employer] up and running at this time. Pt resting in bed. Pt's at bedside. No SOB/resp distress or severe lower extremity pain/discomfort noted at this time. Pt was given Morphine IVP at 0920am. IV in right hand intact and patent. Pt's lower extremity still edematous and painful at touch. Tele unit attached and intact at this time. No needs noted at this time. Call light within reach.
[2018-07-21 12:27] VITALS: BP_SYST 81
[2018-07-21] MEDS ORDERED: ONDANSETRON HCL 4 MG/2 ML VIAL IVP PRN (12:30)
--- NOTE | 2018-07-21 15:15 | NUR ---
Note Dr Chavis on the floor at 1035 - orders given and carried out at this time for medications and tests. Dr Spicer was on the floor at 1225 and orders given for discharge. MD (Dr Chavis) was called and labs given to him. Discharge put on hold and 1 unit of PRBC to be given. Unit of PRBC infusing at this time. Pt's has been at bedside since 09am. Pt was given a urinal and instructed not to get OOB without calling for assistance - standby assist. Pt verbalizes understanding. Pt denies any reaction to blood transfusion at this time. Call light within reach. Pt requested room door be closed so her can get some sleep. Pt's at bedside at this time. Pt had 2 episodes of emesis, refused any Zofran IVP for nausea.
[2018-07-21 16:18] VITALS: BP_SYST 98
[2018-07-21] MEDS: LOSARTAN POTASSIUM 50 MG TABLET (COZAAR) PO SCH (17:08)
--- NOTE | 2018-07-21 18:25 | NUR ---
Note Pt asleep at this time, blood transfusion of one unit of PRBC completed at this time. No reaction noted at this time. Tele unit attached and intact all shift. No SOB/resp distress or lower extremity pain/discomfort was noted at this time. Right forearm IV site benign and patent at this time. No needs noted. Pt was checked on q1' and PRN all shift for needs and care. Call light within reach.
--- NOTE | 2018-07-21 19:20 | NUR ---
OPENING NOTE Received patient awake, AOx4, resting in bed watching t.v. He displayed no s/sx of distress. His meal tray was at bedside and it was not touched he said he did not have an appetite earlier. He said he was feeling better and presently did not have nausea and would attempt to eat. He has Quiton catheter to [facility] and dressing is CDI. Bed is locked to lowest position and was instructed on use of call light.
[2018-07-21 20:00] VITALS: BP_SYST 108
--- NOTE | 2018-07-21 20:30 | NUR ---
NOTES Patient ate 50% of his meal. He denies nausea. He requested a blanket and it was provided. No further needs. Will monitor.
[2018-07-22 00:15] VITALS: BP_SYST 107
--- NOTE | 2018-07-22 00:20 | NUR ---
NOTES Patient's vital signs taken and B/P is 107/52, HR 91. Patient denies pain or nausea. Fingerstick BG was 115 mg/dL, no coverage due. Patient requested the lights off and the door closed. Bed alarm is on and call light is w/in reach. Will monitor.
[2018-07-22 07:52] LABS: CALCIUM 7.2 mg/dL (8.4-11.0); POTASSIUM 3.8 mmol/L (3.5-5.1)
[2018-07-22 07:56] VITALS: BP_SYST 140
--- NOTE | 2018-07-22 08:00 | NUR ---
AM note patient resting in bed, a/ox4, denies pain, assessment complete, IV line is patent and infusing well, Sukhdev cath in place, dressing clean dry and intact, educated on plan of care and call light system and to call for any assistance, he verbalized understanding at this time, bed in lowest position, two side rails up, call light within reach, fall, aspiration and seizure precautions in place.
[2018-07-22 08:09] LABS: ALBUMIN 1.7 g/dL (3.4-4.8); TOTAL BILIRUBIN 0.4 mg/dL (0.0-1.0)
[2018-07-22 08:17] LABS: CREATININE 13.29 mg/dL (0.55-1.30)
[2018-07-22 08:35] LABS: HEMATOCRIT 23.1 % (36-54); HEMOGLOBIN 7.7 g/dL (14.0-18.0); MEAN CORPUSCULAR HEMOGLOBIN 27 pg (27-31); MEAN CORPUSCULAR HGB CONC 33 % (32-36); MEAN CORPUSCULAR VOLUME 83 fL (79.0-98.0); NEUTROPHILS % (AUTO) 79.7 % (40.0-70.0); PLATELET COUNT (AUTO) 224 K/uL (130-430); RED BLOOD CELL COUNT(AUTO) 2.77 MIL/uL (4.2-6.2); RED CELL DISTRIBUTION WIDTH 15.2 % (9.0-15.0); WHITE BLOOD COUNT (AUTO) 13.4 K/uL (4.8-10.8)
[2018-07-22 08:36] LABS: BASOPHILS # (AUTO) 0.1 K/uL (0.0-0.2); BASOPHILS % (AUTO) 0.9 % (0.0-2.0); EOSINOPHILS # (AUTO) 0.3 K/uL (0.0-0.4); EOSINOPHILS % (AUTO) 1.9 % (0.0-4.0); LYMPHOCYTES # (AUTO) 1.2 K/uL (1.0-5.5); LYMPHOCYTES % (AUTO) 8.8 % (20.5-51.5); MONOCYTES # (AUTO) 1.2 K/uL (0.0-1.0); MONOCYTES % (AUTO) 8.7 % (1.7-9.3); NEUTROPHILS # (AUTO) 10.7 K/uL (1.8-7.7)
[2018-07-22] MEDS: PANTOPRAZOLE SODIUM 40 MG/VIAL (PROTONIX) IVP SCH (09:50)
[2018-07-22] MEDS: COLCHICINE 0.6 MG TABLET PO SCH (09:52)
[2018-07-22] MEDS: hydrALAZINE HCL 25 MG TABLET PO SCH (09:52)
[2018-07-22] MEDS: MINOXIDIL 10 MG TABLET (LONITEN) PO SCH (09:52)
[2018-07-22] MEDS: amLODIPine BESYLATE 10 MG TABLET PO SCH (09:53)
[2018-07-22] MEDS: CARVEDILOL 25 MG TABLET (COREG) PO SCH (09:53)
--- NOTE | 2018-07-22 09:55 | NUR ---
Medications patient resting in bed, awake, denies pain, educated on medications uses and potential side effects, he verbalized understanding and tolerated well, IV line is patent and infusing well, continuing to monitor, patient's is at bedside, update with DC planning both patient and his verbalized understanding, bed in lowest position, two side rails up, call light within reach, fall, aspiration and seizure precautions in place, continuing to monitor.
[2018-07-22] MEDS: MINERAL OIL/PETROLATUM,WHITE 113 GM CREAM.GM. TP SCH (09:56)
[2018-07-22 10:40] VITALS: BP_SYST 140
[2018-07-22 11:13] VITALS: BP_SYST 140
--- NOTE | 2018-07-22 11:25 | NUR ---
RN rounds/blood glucose patient resting in bed, awake, states mild but tolerable pain at this time, blood glucose checked, no insulin coverage per MD orders, bed in lowest position, two side rails up, call light within reach, fall and aspiration precautions in place, continuing to monitor.
--- NOTE | 2018-07-22 11:38 | NUR ---
DC Planning: Received call from [facility] nurse who arranged hemodialysis schedules: JONN , chair time at [phone]. [facility], [address] [place] [address], TEl [phone]. Next HD is on Thursday. LELAND provided the above info to pt and spouse this am. -- DEBRA Pradhan made aware.
[2018-07-22] MEDS ORDERED: HYDR-4039 PO (12:42)
[2018-07-22] MEDS ORDERED: LON10 PO (12:42)
[2018-07-22] MEDS ORDERED: NOR10 PO (12:43)
[2018-07-22] MEDS ORDERED: LOSA100T3 PO (12:43)
[2018-07-22] MEDS ORDERED: CARV25TA55 PO (12:43)
--- NOTE | 2018-07-22 13:45 | NUR ---
D/C Patient Patient given medication reconciliation form and D/C instructions. Exit Care provided. Patient verbalized understanding. MD discussed with patient the results and treatment provided. Ambulatory with steady gait for discharge to home. Patient in stable condition, ID band removed. IV catheter removed, intact and dressing applied, no active bleeding. Rx of MINOXDIL, HYDRALAZINE, LOSARTAN, NORVASC AND COREG given. Patient educated on pain management. All belongings sent with patient.
== END 2018-07-22 13:45 | disposition home or self-care (01) | DRG 871 ==
LOC: SED 07:21 → SIC 09:52 → STU 07-17 18:41 → SMU 07-22 10:15
PROVIDERS: ADMIT Internal Medicine Hospice and Palliative Medicine; ATTEND Internal Medicine Hospice and Palliative Medicine
PROC: 30233N1 Transfusion of Nonautologous Red Blood Cells into Peripheral Vein, Percutaneous Approach (ICD-10-PCS; principal; 2018-07-14)
PROC: 02HV33Z Insertion of Infusion Device into Superior Vena Cava, Percutaneous Approach (ICD-10-PCS; 2018-07-14)
PROC: B548ZZA Ultrasonography of Superior Vena Cava, Guidance (ICD-10-PCS; 2018-07-14)
PROC: 5A1D70Z Performance of Urinary Filtration, Intermittent, Less than 6 Hours Per Day (ICD-10-PCS; 2018-07-14)
PROC: 0DB98ZX Excision of Duodenum, Via Natural or Artificial Opening Endoscopic, Diagnostic (ICD-10-PCS; 2018-07-15)
PROC: 0DB68ZX Excision of Stomach, Via Natural or Artificial Opening Endoscopic, Diagnostic (ICD-10-PCS; 2018-07-15)
PROC: 5A1D70Z Performance of Urinary Filtration, Intermittent, Less than 6 Hours Per Day (ICD-10-PCS; 2018-07-16)
PROC: 5A1D70Z Performance of Urinary Filtration, Intermittent, Less than 6 Hours Per Day (ICD-10-PCS; 2018-07-19)
PROC: 02H633Z Insertion of Infusion Device into Right Atrium, Percutaneous Approach (ICD-10-PCS; 2018-07-20)
DX: A41.9 Sepsis, unspecified organism (principal); K85.90 Acute pancreatitis without necrosis or infection, unspecified; N18.6 End stage renal disease; I16.9 Hypertensive crisis, unspecified; N17.9 Acute kidney failure, unspecified; E87.1 Hypo-osmolality and hyponatremia; I12.0 Hypertensive chronic kidney disease with stage 5 chronic kidney disease or end stage renal disease; R18.8 Other ascites; C78.7 Secondary malignant neoplasm of liver and intrahepatic bile duct; D18.00 Hemangioma unspecified site; D64.9 Anemia, unspecified; E11.22 Type 2 diabetes mellitus with diabetic chronic kidney disease; E87.5 Hyperkalemia; K29.70 Gastritis, unspecified, without bleeding; K82.8 Other specified diseases of gallbladder; N28.89 Other specified disorders of kidney and ureter; M10.9 Gout, unspecified; Z60.2 Problems related to living alone; E66.9 Obesity, unspecified; R16.0 Hepatomegaly, not elsewhere classified; C26.9 Malignant neoplasm of ill-defined sites within the digestive system; Z82.49 Family history of ischemic heart disease and other diseases of the circulatory system; Z83.3 Family history of diabetes mellitus; Z87.891 Personal history of nicotine dependence; Z99.2 Dependence on renal dialysis; Z68.34 Body mass index [BMI] 34.0-34.9, adult
CPT/HCPCS: 36415; 43239; 71045; 74160-TC; 76700-TC; 80053; 80074; 81000-TC; 82105; 82607; 82728; 82746; 82962; 83010; 83540-TC; 83550-TC; 83605; 83615-TC; 83690-TC; 83880; 85025; 85044-TC; 85610-TC; 85730-TC; 86886; 86900; 86901; 86920; 87040-TC; 87081; 88305; 88312; 88313; 90935; 90937; 93971; 96374; 96375; 99285; C1751; C9113; G0378; J0360; J1200; J1644; J1815; J2250; J2270; J2543; J3010; J3490; J7030; J7040; J7050; J7060; P9021; Q9967